=== PATIENT | female | born 1970 | race Caucasian/White ===

== ENCOUNTER 2020-04-18 19:37 | Emergency (ER) | payer OTHER, SELFPAY ==
[2020-04-18] VITALS (9 sets, daily range): BP systolic 132–211; BP diastolic 64–120; PULSE 55–79; RESP 12–22; TEMP 36.9; O2SAT 96–100; BMI 26.6
--- NOTE | 2020-04-18 19:50 | DI.RAD.S_ITS ---
PROCEDURE: XR CHEST 1V INDICATIONS: chest pain TECHNIQUE: One view of the chest was acquired. COMPARISON: None. FINDINGS: Surgical changes and devices: None. Lungs and pleura: Lungs are clear. No pleural effusions or pneumothorax. Mediastinum: Mediastinal contours appear normal. Heart size is normal. Bones and chest wall: No suspicious bony lesions. Overlying soft tissues appear unremarkable. IMPRESSION: No acute process. Dictated by: Estela Thomas M.D. on 04/18/2020 at 20:12 Approved by: Estela Thomas M.D. on 04/18/2020 at 20:12
[2020-04-18] MEDS: HYDROMORPHONE 0.5 MG INJ IV (20:09)
[2020-04-18] MEDS: SODIUM CHLORIDE 0.9% 1,000 ML 1000 ML IV (20:09)
[2020-04-18] MEDS: ONDANSETRON 4 MG/2 ML INJ IV (20:10)
[2020-04-18 20:24] LABS: Add Manual Diff / Slide Review NO; Basophils Absolute Auto 100 /uL (0-100); Basophils Percent Auto 1.1 % (0-2); Eosinophils Absolute Auto 200 /uL (0-450); Eosinophils Percent Auto 1.7 % (2-4); Hematocrit 38.8 % (36-46); Lymphocytes Absolute Auto 3300 /uL (1100-4500); Lymphocytes Percent Auto 36.7 % (25-40); Mean Corpuscular HGB Conc 33.6 % (30-36); Mean Corpuscular Hemoglobin 31.1 PG (26-34); Mean Corpuscular Volume 92.5 fL (80-100); Monocytes Absolute Auto 500 /uL (0-900); Monocytes Percent Auto 5.2 % (3-14); Neutrophils Absolute Auto 5000 /uL (1500-7000); Neutrophils Percent Auto 55.3 % (50-75); Platelet Count 324 X10^3/uL (150-400); Red Blood Cell Count 4.19 X10^6/uL (4.0-5.2); White Blood Cell Count 9.1 X10^3/uL (4.5-11.0)
--- NOTE | 2020-04-18 20:24 | ED_ITS ---
HPI - Chest Pain General Chief Complaint: Chest Pain Stated Complaint: Chest Pain Time Seen by Provider: 04/18/20 19:40 Source: patient Mode of arrival: Ambulatory Limitations: no limitations History of Present Illness HPI narrative: 50-year-old female nonsmoker with a chief complaint of a rather sudden onset right upper quadrant pain with radiation to her back that started this afternoon. She thinks it might of been made worse with eating some pizza this afternoon. She states it is achy and sharp in nature and at its most intense is 8/10. It is made worse by motion and improves with rest. Deep breath seem to make her upper abdomen pain worse. She denies any chest pain or shortness of breath. She is not dizzy nor weak or lightheaded. She is nauseated but denies any vomiting, fever, chills, constipation or diarrhea MD complaint: other Onset (ago): hour(s) Duration: constant Onset: after eating Pain location: epigastric Severity: severe Severity scale (1-10): 8 Quality: aching and sharp Pain radiation: back Relieving factors: remaining still Exacerbating factors: inspiration and eating Associated symptoms: nausea Treatments prior to arrival chest pain: none Related Data On Oral Contraceptives: No Previous Rx's Medication Instructions Recorded hydrocodone-acetaminophen 1 tab PO Q4-6H PRN #10 tab 04/18/20 ondansetron 4 mg PO TID-QID PRN #10 tab 04/18/20 Allergies Allergy/AdvReac Type Severity Reaction Status Date / Time No Known Drug Allergies Allergy Verified 04/18/20 19:51 Review of Systems Constitutional Constitutional: Denies chills, Denies fatigue, Denies fever(s), Denies frequent falls, Denies lethargy and Denies weakness Eyes Eyes: Denies change in vision, Denies eye discharge, Denies irritation and Denies loss of vision ENT Ears, Nose, Mouth, and Throat: Denies change in voice, Denies dizziness, Denies neck pain, Denies sore throat and Denies throat swelling Cardiovascular Cardiovascular: Denies chest pain, Denies irregular heart rhythm, Denies lightheadedness, Denies palpitations, Denies dyspnea, Denies dyspnea on exertion and Denies orthopnea Respiratory Respiratory: Denies cough, Denies dyspnea, Denies dyspnea on exertion and Denies wheezing Gastrointestinal Gastrointestinal: Reports abdominal pain, Denies change in bowel habits, Denies diarrhea, Reports nausea and Denies vomiting Musculoskeletal Musculoskeletal: Denies neck pain and Denies numbness Integumentary/Breasts Skin/Breast: Denies pruritus, Denies erythema, Denies rash and Denies wounds Neurologic Neurologic: Denies behavioral changes, Denies confusion, Denies dizziness, Denies frequent falls, Denies loss of vision, Denies numbness and Denies weakness Psychiatric Psychiatric: Denies anxiety, Denies behavioral changes, Denies confusion, Denies depression, Denies homicidal ideation and Denies suicidal ideation Endocrine Endocrine: Denies fatigue, Denies flushing and Denies palpitations Hematologic/Lymphatic Hematologic/Lymphatic: Denies easy bruising Allergic/Immunologic Allergic/Immunologic: Denies urticaria, Denies throat swelling and Denies wheezing Patient History Social History Smoking Status: Unknown if ever smoked Smoking Status: Unknown if ever smoked alcohol intake frequency: 0-2 drinks per day Substance Use Type: does not use Exam Narrative Exam Narrative: GENERAL: [50] year old patient appears stated age. Well- nourished, well-developed patient, in mild distress. Anxious, obviously in pain HEAD: Atraumatic. Normocephalic. EYES: Pupils equal round and reactive. Extraocular motions intact. No scleral icterus. No injection or drainage. ENT: Nose without bleeding, purulent drainage. Throat without erythema, tonsillar hypertrophy or exudate. Airway patent. NECK: Trachea midline. Non tender CARDIOVASCULAR: Regular rate and rhythm without murmurs, gallops, or rubs. RESPIRATORY: Clear to auscultation. Breath sounds equal bilaterally. No wheezes, rales, or rhonchi. GASTROINTESTINAL: Abdomen soft, epigastric and right upper quadrant pain, nondistended. EXTREMITIES: No edema or joint tenderness. BACK: Nontender without deformity or crepitance. No flank tenderness. NEURO: AOx3. SKIN: No rash or erythema of visible areas Initial Vital Signs Initial Vital Signs: Vital Signs Temperature 98.5 F 04/18/20 19:45 Pulse Rate 79 04/18/20 19:45 Respiratory Rate 14 04/18/20 19:45 Blood Pressure 211/88 H 04/18/20 19:45 Pulse Oximetry 98 04/18/20 19:45 Course Orders Ordered: Discontinued Medications Hydrocodone Bitart/Acetaminophen (Hydrocodone/Acet 5/325 Prepack) 1 bottle MISC SEEINSTR ONE Stop: 04/18/20 22:12 Last Admin: 04/18/20 22:22 Dose: 1 bottle Documented by: HARRIET Hydromorphone HCl (Hydromorphone 0.5 Mg Inj) 0.5 mg IV NOW ONE Stop: 04/18/20 19:57 Last Admin: 04/18/20 20:09 Dose: 0.5 mg Documented by: HARRIET Sodium Chloride (Normal Saline 0.9%) 1,000 mls @ 1,000 mls/hr IV BOLUS ONE Stop: 04/18/20 21:06 Last Infusion: 04/18/20 21:51 Dose: 0 mls/hr Documented by: Admin: 04/18/20 20:09 Dose: 1,000 mls/hr Documented by: HARRIET Ondansetron HCl (Ondansetron 4 Mg/2 Ml Inj) 4 mg IV NOW ONE Stop: 04/18/20 19:57 Last Admin: 04/18/20 20:10 Dose: 4 mg Documented by: HARRIET Ondansetron HCl (Ondansetron 4 Mg Odt Prepack) 1 bottle MISC SEEINSTR ONE Stop: 04/18/20 22:12 Last Admin: 04/18/20 22:22 Dose: 1 bottle Documented by: HARRIET Reevaluation(s) Reevaluation #1: Significant improvement in the above-stated therapies. Near complete resolution of symptoms. Very comfortable going home Vital Signs Vital signs: Vital Signs - 8 hr 04/18/20 22:00 Pulse Rate 68 Respiratory Rate 12 Blood Pressure 132/65 Pulse Oximetry 97 MDM - Chest Pain Lab Data Result diagrams: 04/18/20 19:55 04/18/20 19:55 Labs: Lab Results 04/18/20 04/18/20 04/18/20 Range/Units 19:55 19:55 19:55 WBC 9.1 (4.5-11.0) X10^3/uL RBC 4.19 (4.0-5.2) X10^6/uL Hgb 13.0 (12.0-16.0) g/dL Hct 38.8 (36-46) % MCV 92.5 (80-100) fL MCH 31.1 (26-34) PG MCHC 33.6 (30-36) % RDW 13.0 (11.6-14.8) % Plt Count 324 (150-400) X10^3/uL Neut % (Auto) 55.3 (50-75) % Lymph % (Auto) 36.7 (25-40) % [place] % (Auto) 5.2 (3-14) % Eos % (Auto) 1.7 L (2-4) % Baso % (Auto) 1.1 (0-2) % Neut # (Auto) 5000 (5610-4838) /uL Lymph # (Auto) 3300 (1502-9788) /uL [place] # (Auto) 500 (0-900) /uL Eos # (Auto) 200 (0-450) /uL Baso # (Auto) 100 (0-100) /uL PT 10.8 (10.1-12.7) SECONDS INR 0.9 (0.9-1.3) APTT 31 (26.4-36.2) SECONDS Sodium 138 (137-145) mmol/L Potassium 3.4 (3.4-5.1) mmol/L Chloride 104 (98-107) mmol/L Carbon Dioxide 27 (22-32) mmol/L BUN 12 (7-17) mg/dL Creatinine 0.61 (0.52-1.04) mg/dL Estimated GFR > 60.0 (>60) mL/min BUN/Creatinine Ratio 19.7 (6-22) Glucose 114 H (70-100) mg/dL Calcium 9.1 (8.4-10.2) mg/dL Total Bilirubin 0.1 L (0.2-1.3) mg/dL AST 30 (14-36) IU/L ALT 21 (<35) IU/L Alkaline Phosphatase 76 (38-126) U/L Total Creatine Kinase 93 (30-135) U/L CK-MB (CK-2) TNP CK-MB (CK-2) Rel Index TNP Troponin I < 0.012 (0.01-0.034) ng/mL Total Protein 7.7 (6.3-8.2) g/dL Albumin 4.4 (3.5-5.0) g/dL Globulin 3.3 (1.7-4.1) g/dL Albumin/Globulin Ratio 1.3 (1.0-2.8) Lipase 181 (23-300) U/L Imaging Data US - abdomen: Radiologist's Impression: [address] [id number] ReportSigned Patient: Felecia Nolen MMR#: [id number]: 1970Acct:[id number]/Sex: 50 / FDate of Service: 04/18/20Loc: EDAccession Number: [id number] Procedure: US abdomen limited Ordering Provider: Abisai Mari D.O. PROCEDURE: US ABDOMEN LIMITED INDICATIONS: SEVERE EPIGASTRIC PAIN RADIATING TO BACK TECHNIQUE: Real-time scanning was performed of the abdominal and retroperitoneal organs, with image documentation. COMPARISON: None. FINDINGS: Liver: Liver is normal in size and homogeneous in echotexture. Gallbladder: Demonstrates multiple calculi within its lumen. Gallbladder is distended measuring 11 cm. No gallbladder wall thickening. Biliary ducts: Not well seen Pancreas: Not well seen No evidence of free fluid within the right upper quadrant. IMPRESSION: Markedly distended gallbladder with cholelithiasis. No gallbladder wall thickening. Dictated by: Estela Thomas M.D. on 04/18/2020 at 21:45 Approved by: Estela Thomas M.D. on 04/18/2020 at 21:46 MDM Narrative Medical decision making narrative: Multiple diagnoses considered including pa ncreatitis (thought unlikely given normal labs), gallbladder disease (presence of stones but normal labs) versus bowel obstruction versus other. Ultrasound notes stones but no evidence of cholecystitis. Her pain is well controlled and tolerated but the above-stated therapies. Labs are very reassuring. She is given return precautions, encouraged to follow up, and has had questions answered to her apparent satisfaction Discharge Plan Departure Patient Disposition: Home Clinical Impression: Gallbladder attack Instructions: DI for Gallstones Activity Restrictions/Additional Instructions: *You have been diagnosed with [gallstones without evidence of infection] *What to do: *Take medications as directed: Prescription sent to [facility] on [address] in [place] at your request *Follow up with your doctor early in the week, call for an appointment and let them know you were seen in the Emergency Department and we'd like you seen in follow up. It would seem reasonable to get a referral to a surgeon for ongoing planning. Should you choose to follow up locally please contact [facility], call for an appointment and let them know you were seen in the emergency department and we ask that he be seen in follow-up *Return to ER if you should have any new, worsening or concerning symptoms, such as [worsening pain, fever over 101 F, yellowing of the skin, persistent vomiting or other bothersome symptoms] Prescriptions: New hydrocodone-acetaminophen 5-325 mg tablet 1 tab PO Q4-6H PRN (Reason: pain) Qty: 10 RF: 0 ondansetron 4 mg tablet,disintegrating 4 mg PO TID-QID PRN (Reason: nausea and vomiting) Qty: 10 RF: 0 Referrals: Laura Espana MD [Primary Care Provider] - Lulu Hawk MD [Physician] -
[2020-04-18 20:55] LABS: INR 0.9 (0.9-1.3); Prothrombin Time 10.8 SECONDS (10.1-12.7)
[2020-04-18 20:57] LABS: PTT Partial Thromboplastin Tim 31 SECONDS (26.4-36.2)
[2020-04-18 20:59] LABS: Alanine Aminotransferase 21 IU/L (<35); Albumin 4.4 g/dL (3.5-5.0); Albumin Globulin Ratio 1.3 (1.0-2.8); Alkaline Phosphatase 76 U/L (38-126); Aspartate Aminotransferase 30 IU/L (14-36); BUN Creatinine Ratio 19.7 (6-22); Bilirubin Total 0.1 mg/dL (0.2-1.3); Blood Urea Nitrogen 12 mg/dL (7-17); Calcium 9.1 mg/dL (8.4-10.2); Carbon Dioxide 27 mmol/L (22-32); Chloride 104 mmol/L (98-107); Creatine Kinase 93 U/L (30-135); Estimated Glomerular Filt Rate > 60.0 mL/min (>60); Globulin 3.3 g/dL (1.7-4.1); Glucose 114 mg/dL (70-100); HEMOLYSIS < 15 (0-50); Lipase 181 U/L (23-300); Potassium 3.4 mmol/L (3.4-5.1); Sodium 138 mmol/L (137-145); Total Protein 7.7 g/dL (6.3-8.2)
[2020-04-18 21:11] LABS: Troponin I < 0.012 ng/mL (0.01-0.034)
[2020-04-18] MEDS: ONDANSETRON 4 MG ODT PREPACK 1 BOTTLE MISC (22:22)
[2020-04-18] MEDS: HYDROCODONE/ACET 5/325 PREPACK 1 BOTTLE MISC (22:22)
== END 2020-04-18 22:31 | disposition home or self-care (01) ==
PROVIDERS: Emergency Provider Emergency Medicine; PCP Family Medicine
DX: K82.9 Disease of gallbladder, unspecified (principal); R07.9 Chest pain, unspecified; R11.0 Nausea; F41.9 Anxiety disorder, unspecified
CPT/HCPCS: 36415; 71045; 76705; 80053; 82550; 83690; 84484; 85025; 85610; 85730; 93005; 96361; 96374; 96375; 99283; 99284; J1170; J2405